=== PATIENT | female | born 1990 | race African-American/Black ===

== ENCOUNTER 2016-09-26 13:35 | Emergency (ER) | payer OTHER ==
[2016-09-26 13:39] VITALS: BP 158/75; BMI 20.3
[2016-09-26] MEDS ORDERED: TORADOL 60 MG VIAL IM ONE (14:49)
[2016-09-26] MEDS ORDERED: FLEXERIL TAB 10 MG PO STA (14:49)
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
[2016-09-26] MEDS ORDERED: FLEXERIL TAB 10 MG ONE (15:10)
[2016-09-26] MEDS ORDERED: TORADOL 60 MG VIAL ONE (15:10)
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
== END 2016-09-26 17:25 | disposition home or self-care (01) ==
LOC: ER 13:49
DX: S20.212A Contusion of left front wall of thorax, initial encounter (principal); M79.1 Myalgia; Z04.3 Encounter for examination and observation following other accident; V49.9XXA Car occupant (driver) (passenger) injured in unspecified traffic accident, initial encounter
CPT/HCPCS: 71111; 96372; 99282; 99283; J1885

== ENCOUNTER 2016-12-08 11:48 | Emergency (ER) | payer SELFPAY ==
[2016-12-08 11:54] VITALS: BP 121/66; BMI 20.7
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
== END 2016-12-08 14:11 | disposition home or self-care (01) ==
LOC: ER 12:20
DX: J02.9 Acute pharyngitis, unspecified (principal)
CPT/HCPCS: 87070; 87880; 99282